=== PATIENT | female | born 1990 | race African-American/Black ===

== ENCOUNTER 2017-08-07 13:24 | Inpatient (IN) | payer OTHER ==
[~2017-08-07] VITALS: Ht 165.1 cm; Wt 66.5 kg
[~2017-08-07 13:24] MED LIST: ZOFR4TAB3 SL
[2017-08-07 13:29] VITALS: BP 131/85; PULSE 96; RESP 20; TEMP 97.9; O2SAT 98
[2017-08-07 15:03] LABS: AUTOMATED NEUTROPHIL # 2.6 TH/MM3 (1.8-7.7); BASOPHIL % 0.7 % (0.0-2.0); EOSINOPHIL % 0.6 % (0.0-4.0); HEMATOCRIT 43.8 % (35.0-46.0); HEMOGLOBIN 14.9 GM/DL (11.6-15.3); LYMPH % 27.2 % (9.0-44.0); LYMPHOCYTE # 1.1 TH/MM3 (1.0-4.8); MEAN CELL VOLUME 92.6 FL (80.0-100.0); MEAN CORPUSCULAR HEMOGLOBIN 31.6 PG (27.0-34.0); MEAN CORPUSCULAR HGB CONC 34.1 % (32.0-36.0); MEAN PLATELET VOLUME 8.6 FL (7.0-11.0); MONO % 6.9 % (0.0-8.0); MONOCYTE # 0.3 TH/MM3 (0-0.9); NEUT % 64.6 % (16.0-70.0); PLATELET COUNT 237 TH/MM3 (150-450); RED BLOOD COUNT 4.73 MIL/MM3 (4.00-5.30); RED CELL DISTRIBUTION WIDTH 12.6 % (11.6-17.2)
[2017-08-07 15:11] LABS: BACTERIA, URINE RARE /hpf; BILIRUBIN, URINE NEG (NEG); BLOOD, URINE TRACE (NEG); GLUCOSE,URINE NEG (NEG); KETONE, URINE NEG (NEG); NITRITE,URINE NEG (NEG); PH, URINE 5.5 (5.0-8.5); SQUAMOUS EPITHELIAL CELL URINE 2 /hpf (0-5); URINE COLOR LIGHT-YELLOW (YELLW/STRAW); URINE LEUKOCYTE ESTERASE NEG (NEG)
[2017-08-07 15:24] LABS: ALBUMIN 4.6 GM/DL (3.4-5.0); AST (GOT) 36 U/L (15-37); BICARBONATE 24.6 MEQ/L (21.0-32.0); BLOOD UREA NITROGEN 7 MG/DL (7-18); CALCIUM 8.7 MG/DL (8.5-10.1); CHLORIDE 106 MEQ/L (98-107); CREATININE 0.76 MG/DL (0.50-1.00); GLOMERULAR FILTRATION RATE 111 ML/MIN (>89); GLUCOSE,RANDOM 87 MG/DL (74-106); SODIUM (NA) 139 MEQ/L (136-145)
[2017-08-07 15:29] LABS: ALKALINE PHOSPHATASE 87 U/L (45-117); ALT (GPT) 39 U/L (10-53); TOTAL BILIRUBIN ADULT 0.2 MG/DL (0.2-1.0); TOTAL PROTEIN 9.4 GM/DL (6.4-8.2)
[2017-08-07 15:55] VITALS: BP 112/76; PULSE 90; RESP 18; O2SAT 98
--- NOTE | 2017-08-07 15:55 | PD ---
HPI Chief Complaint: Psychiatric Symptoms Time Seen by Provider: 15:53 Travel History International Travel<30 days: No Contact w/Intl Traveler<30days: No Traveled to known affect area: No History of Present Illness HPI 26-year-old Afro-[place]ian female presents to the emergency department voluntarily for psychiatric evaluation with suicidal ideation. She comes in with her mother and father. Patient is cooperative. Patient states that she wants to take poison to commit suicide. Patient states no significant drug use but does drink 1-2 beers nightly for sleep. Patient denies other medical problems other than chronic left knee pain. Patient has no known drug allergies. PFSH Past Medical History Diminished Hearing: No Respiratory: Yes (Bronchitis) Immunizations Current: Yes ?: Not LMP: 07/30/2017 : 0 Social History Alcohol Use: Yes ("MAYBE 2 BEERS A NIGHT") Tobacco Use: Yes (1 PPD) Substance Use: No Allergies-Medications (Allergen,Severity, Reaction): Coded Allergies: No Known Allergies (Verified , 06/14/16) Reported Meds & Prescriptions Reported Meds & Active Scripts Active Zofran Odt (Ondansetron Odt) 4 Mg Tab 4 Mg SL Q6HR PRN Review of Systems Except as stated in HPI: all other systems reviewed are Neg General / Constitutional: No: Fever Eyes: No: Visual changes HENT: No: Headaches Cardiovascular: No: Chest Pain or Discomfort Respiratory: No: Shortness of Breath Gastrointestinal: No: Abdominal Pain Genitourinary: No: Dysuria Musculoskeletal: No: Pain Skin: No Rash Neurologic: No: Weakness Psychiatric: Positive: Depression, Suicidal Ideations, No: Homicidal Ideation Endocrine: No: Polydipsia Hematologic/Lymphatic: No: Easy Bruising Physical Exam Narrative GENERAL: Patient appears in no obvious distress. She has somewhat poor eye contact. SKIN: Warm and dry. Normal color. Normal turgor. HEAD: Atraumatic. Normocephalic. EYES: Pupils equal and round. No scleral icterus. No injection or drainage. ENT: No nasal bleeding or discharge. Mucous membranes pink and moist. Pharynx is clear. Airway is patent. NECK: Trachea midline. Supple nontender CARDIOVASCULAR: Regular rate and rhythm. RESPIRATORY: No accessory muscle use. Clear to auscultation. Breath sounds equal bilaterally. GASTROINTESTINAL: Abdomen soft, non-tender, nondistended. Hepatic and splenic margins not palpable. MUSCULOSKELETAL: Extremities without clubbing, cyanosis, or edema. No obvious deformities. NEUROLOGICAL: Awake and alert. No obvious cranial nerve deficits. Motor grossly within normal limits. Five out of 5 muscle strength in the arms and legs. Normal speech. PSYCHIATRIC: Appropriate mood and affect; insight and judgment normal. Data Data Last Documented VS Vital Signs Date Time Temp Pulse Resp B/P (MAP) Pulse Ox O2 Delivery O2 Flow Rate FiO2 08/07/17 15:55 90 18 112/76 (88) 98 Room Air 08/07/17 13:29 97.9 Orders Orders Complete Blood Count With Diff (08/07/17 13:45) Comprehensive Metabolic Panel (08/07/17 13:45) Urinalysis - C+S If Indicated (08/07/17 13:45) Ed Urine Pregnancytest Poc (08/07/17 13:45) Psych Screen (08/07/17 13:45) Drug Screen, Random Urine (08/07/17 13:45) Alcohol (Ethanol) (08/07/17 13:45) Labs Laboratory Tests Test 08/07/17 14:42 White Blood Count 4.0 TH/MM3 Red Blood Count 4.73 MIL/MM3 Hemoglobin 14.9 GM/DL Hematocrit 43.8 % Mean Corpuscular Volume 92.6 FL Mean Corpuscular Hemoglobin 31.6 PG Mean Corpuscular Hemoglobin Concent 34.1 % Red Cell Distribution Width 12.6 % Platelet Count 237 TH/MM3 Mean Platelet Volume 8.6 FL Neutrophils (%) (Auto) 64.6 % Lymphocytes (%) (Auto) 27.2 % Monocytes (%) (Auto) 6.9 % Eosinophils (%) (Auto) 0.6 % Basophils (%) (Auto) 0.7 % Neutrophils # (Auto) 2.6 TH/MM3 Lymphocytes # (Auto) 1.1 TH/MM3 Monocytes # (Auto) 0.3 TH/MM3 Eosinophils # (Auto) 0.0 TH/MM3 Basophils # (Auto) 0.0 TH/MM3 CBC Comment DIFF FINAL Differential Comment Urine Color LIGHT-YELLOW Urine Turbidity CLEAR Urine pH 5.5 Urine Specific [place] 1.005 Urine Protein NEG mg/dL Urine Glucose (UA) NEG mg/dL Urine Ketones NEG mg/dL Urine Occult Blood TRACE Urine Nitrite NEG Urine Bilirubin NEG Urine Urobilinogen LESS THAN 2.0 MG/DL Urine Leukocyte Esterase NEG Urine RBC 1 /hpf Urine WBC 2 /hpf Urine Squamous Epithelial Cells 2 /hpf Urine Bacteria RARE /hpf Microscopic Urinalysis Comment CULT NOT INDICATED Blood Urea Nitrogen 7 MG/DL Creatinine 0.76 MG/DL Random Glucose 87 MG/DL Total Protein 9.4 GM/DL Albumin 4.6 GM/DL Calcium Level 8.7 MG/DL Alkaline Phosphatase 87 U/L Aspartate Amino Transf (AST/SGOT) 36 U/L Alanine Aminotransferase (ALT/SGPT) 39 U/L Total Bilirubin 0.2 MG/DL Sodium Level 139 MEQ/L Potassium Level 4.2 MEQ/L Chloride Level 106 MEQ/L Carbon Dioxide Level 24.6 MEQ/L Anion Gap 8 MEQ/L Estimat Glomerular Filtration Rate 111 ML/MIN Urine Opiates Screen NEG Urine Barbiturates Screen NEG Urine Amphetamines Screen NEG Urine Benzodiazepines Screen NEG Urine Cocaine Screen NEG Urine Cannabinoids Screen NEG Ethyl Alcohol Level 294 MG/DL MDM Medical Decision Making Medical Screen Exam Complete: Yes Emergency Medical Condition: Yes Medical Record Reviewed: Yes Differential Diagnosis Depression. Suicidal ideation. Need for psychiatric evaluation. Narrative Course Patient is currently voluntary but I explained to her that if she tried to leave I would probably Moreno act her based on my history and physical. Psychiatric labs are ordered per protocol. Including urine . Psychiatric screening ordered. Labs are unremarkable. Urine tox screen is negative. Serum EtOH is 294. Patient is medically cleared for psychiatric evaluation. Diagnosis Primary Impression: Suicidal ideation Condition: Stable Misael Munguia Aug 07, 2017 15:55
[2017-08-07 19:54] VITALS: BP 122/68; PULSE 101; RESP 17; O2SAT 98
[2017-08-08 02:06] VITALS: BP 106/59; PULSE 101; RESP 18; O2SAT 98
[2017-08-08 06:39] VITALS: BP 123/62; PULSE 101; RESP 18; O2SAT 97
[2017-08-08 10:25] VITALS: BP 114/63; PULSE 84; RESP 18
[2017-08-08] MEDS ORDERED: ACETAMINOPHEN 325 MG TAB PO PRN (13:15)
[2017-08-08] MEDS ORDERED: LORazepam 2 MG/ML VIAL IM PRN (13:15)
[2017-08-08] MEDS ORDERED: MAGNESIUM HYDROXIDE SUSP 30 ML CUP PO PRN (13:15)
[2017-08-08] MEDS ORDERED: ALUMINUM/MAGNESIUM/SIMETH 30 ML CUP PO PRN (13:15)
--- NOTE | 2017-08-08 13:24 | HHI.HP ---
Provisional Diagnosis Admission Date [place] I. Major depression Certification of Person's Competence To Provide Express and Informed Consent I have personally examined Althea Vargas , a person being served at [facility] on, Aug 08, 2017 13:14. Express and informed consent means consent voluntarily given in writing, by a competent person, after sufficient explanation and disclosure of the subject matter involved to enable the person to make a knowing and willful decision without any element of force, fraud, deceit, duress, or other form of constraint or coercion. This person is 18 years of age or older, is not now known to be incompetent to consent to treatment with a guardian advocate, and does not have a health care surrogate or proxy currently making medical treatment decisions. I have found this person to be one of the following: [X] Competent to provide express and informed consent, as defined above, for voluntary admission to this facility and is competent to provide express and informed consent for treatment. He/she has the consistent capacity to make well reasoned, willful, and knowing decisions concerning his or her medical or mental health treatment. The person fully and consistently understands the purpose of the admission for examination/placement and is fully capable of personally exercising all rights [place] Incompetent to provide express and informed consent to voluntary admission, and this is incompetent to provide express and informed consent to treatment. The person must be transferred to involuntary status and a petition for a guardian advocate filed with the Circuit Court. [] Refusing to provide express and informed consent to voluntary admission but is competent to provide express and informed consent for treatment. The person must be discharged or transferred to involuntary status. Form shall be completed within 24 hours of a person's arrival at the receiving facility and filed in the clinical record of each person: 1. Admitted on a voluntary basis 2. Permitted to provide express and informed consent to his/her own treatment 3. Allowed to transfer from involuntary to voluntary status 4. Prior to permitting a person to consent to his or her own treatment after having been previously found incompetent to consent to treatment. History of Present Illness Capacity: Has Capacity HPI 26-year-old female accompanied by her mother and father, presenting voluntarily for psychiatric examination. The patient describes a greater than 2 week history (several months) of depressive complaints. She currently has suicidal ideation with plan and her plan is to drink some kind of poison. She demonstrates a poverty of speech and was not forthcoming about stressors that might be contributing to her depression. She does admit to experiencing multiple symptoms, including depressed mood, anhedonia, diminished energy, feelings of hopelessness and helplessness, decreased self-esteem, social withdrawal, difficulty with concentration, initial and middle insomnia, as well as suicidality. She is anxious in general but cannot pinpoint a specific stressor. She admits to drinking 1-2 beers some nights in order to help her sleep. She denies any illicit drug use. Her toxicology screen is negative for drugs but her alcohol level is 294. She is unable to contract for safety. Her mother reportedly works at this hospital as a nursing attendant. Review of Systems Psychiatric: COMPLAINS OF: Anxiety, Depression, Suicidal Ideation Except as stated in HPI: all other systems reviewed are Neg Past Psych History Psychological trauma history Unknown. Patient not revealing. Violence risk - others (6 mos) Minimal to moderate. Violence risk - self (6 mos) High Substance Abuse History Drugs/Alcohol past 12 months Denied but this physician feels the patient is abusing alcohol as 1-2 beers would not give rise to an alcohol level of 294. Past Family Social History Coded Allergies: No Known Allergies (Verified , 06/14/16) Active Scripts Ondansetron Odt (Zofran Odt) 4 Mg Tab, 4 MG SL Q6HR Y for Nausea/Vomiting, #10 TAB 0 Refills Prov:Endy Carlin MD 06/14/16 Family Psych History Positive for mood and anxiety disorders. Social History Patient intermittently a student. He works intermittently as well. Has a supportive family. As stated above, mother works at this hospital. Patient denies drug and alcohol abuse but toxicology testing is positive for significant alcohol this evening. Patient's Strengths (min. 2) Verbal and has access to healthcare. Physical Exam GENERAL: SKIN: Warm and dry. HEAD: Normocephalic. EYES: No scleral icterus. No injection or drainage. NECK: Supple, trachea midline. No JVD or lymphadenopathy. CARDIOVASCULAR: Regular rate and rhythm without murmurs, gallops, or rubs. RESPIRATORY: Breath sounds equal bilaterally. No accessory muscle use. GASTROINTESTINAL: Abdomen soft, non-tender, nondistended. MUSCULOSKELETAL: No cyanosis, or edema. BACK: Nontender without obvious deformity. No CVA tenderness. Vital Signs Vital Signs Date Time Temp Pulse Resp B/P (MAP) Pulse Ox O2 Delivery O2 Flow Rate FiO2 08/08/17 10:25 84 18 114/63 (80) 08/08/17 06:39 97 Room Air 08/07/17 13:29 97.9 Lab Results Test 08/07/17 14:42 White Blood Count 4.0 TH/MM3 Red Blood Count 4.73 MIL/MM3 Hemoglobin 14.9 GM/DL Hematocrit 43.8 % Mean Corpuscular Volume 92.6 FL Mean Corpuscular Hemoglobin 31.6 PG Mean Corpuscular Hemoglobin Concent 34.1 % Red Cell Distribution Width 12.6 % Platelet Count 237 TH/MM3 Mean Platelet Volume 8.6 FL Neutrophils (%) (Auto) 64.6 % Lymphocytes (%) (Auto) 27.2 % Monocytes (%) (Auto) 6.9 % Eosinophils (%) (Auto) 0.6 % Basophils (%) (Auto) 0.7 % Neutrophils # (Auto) 2.6 TH/MM3 Lymphocytes # (Auto) 1.1 TH/MM3 Monocytes # (Auto) 0.3 TH/MM3 Eosinophils # (Auto) 0.0 TH/MM3 Basophils # (Auto) 0.0 TH/MM3 CBC Comment DIFF FINAL Differential Comment Urine Color LIGHT-YELLOW Urine Turbidity CLEAR Urine pH 5.5 Urine Specific [place] 1.005 Urine Protein NEG mg/dL Urine Glucose (UA) NEG mg/dL Urine Ketones NEG mg/dL Urine Occult Blood TRACE Urine Nitrite NEG Urine Bilirubin NEG Urine Urobilinogen LESS THAN 2.0 MG/DL Urine Leukocyte Esterase NEG Urine RBC 1 /hpf Urine WBC 2 /hpf Urine Squamous Epithelial Cells 2 /hpf Urine Bacteria RARE /hpf Microscopic Urinalysis Comment CULT NOT INDICATED Blood Urea Nitrogen 7 MG/DL Creatinine 0.76 MG/DL Random Glucose 87 MG/DL Total Protein 9.4 GM/DL Albumin 4.6 GM/DL Calcium Level 8.7 MG/DL Alkaline Phosphatase 87 U/L Aspartate Amino Transf (AST/SGOT) 36 U/L Alanine Aminotransferase (ALT/SGPT) 39 U/L Total Bilirubin 0.2 MG/DL Sodium Level 139 MEQ/L Potassium Level 4.2 MEQ/L Chloride Level 106 MEQ/L Carbon Dioxide Level 24.6 MEQ/L Anion Gap 8 MEQ/L Estimat Glomerular Filtration Rate 111 ML/MIN Urine Opiates Screen NEG Urine Barbiturates Screen NEG Urine Amphetamines Screen NEG Urine Benzodiazepines Screen NEG Urine Cocaine Screen NEG Urine Cannabinoids Screen NEG Ethyl Alcohol Level 294 MG/DL Mental Status Examination Appearance: Appropriate Consciousness: Alert Orientation: x4 Motor Activity: Normal gait Speech: Unremarkable Language: Adequate Fund of Knowledge: Adequate Attention and Concentration: Adequate Memory: Unremarkable Mood: Sad, Anxious Affect: Sad, Anxious Thought Process & Associations: Intact Thought Content: Appropriate Hallucination Type: None Delusion Type: None Suicidal Ideation: Yes Suicidal Plan: Yes Suicidal Intention: Yes Homicidal Ideation: No Homicidal Plan: No Homicidal Intention: No Insight: Fair Judgment: Impulsive Assessment & Plan Problem List: (1) Severe major depression, single episode, without psychotic features ICD Codes: F32.2 - Major depressive disorder, single episode, severe without psychotic features Assessment & Plan Estimated LOS: days. 26-year-old female presents voluntarily with symptoms of depression and suicidal thinking with plan. As stated by the physician office assistant, if patient were not willing to be admitted voluntarily, this physician would initiate a Moreno act. Patient is considered to be at high risk for self-harm as a result of her age group, recent alcohol abuse, chronic depressive symptoms, and lethal plan for suicide. She is therefore being admitted for further evaluation and treatment. This physician has ordered a CBC and comprehensive metabolic panel to determine if any infectious process or metabolic process might be causing or contributing to her depression. This physician has also ordered hemoglobin A1c and a lipid panel as problems with blood sugar and cholesterol could either cause mood changes or be the result of psychotropic medicines which have yet to be started. This physician also ordered thyroid stimulating hormone level, vitamin B-12 level and vitamin D level as deficiencies in these areas might cause or contribute to the patient's depression. An EKG is being obtained to determine the patient's cardiac conduction status prior to initiating psychotropic medicines which might adversely effect the electrical system of her heart. This case was discussed with nurse Frye. Case management will also be involved to assist with information gathering and disposition planning. Juan Carlos Olivier MD Aug 08, 2017 13:24
[2017-08-08 16:00] VITALS: BP 123/80; PULSE 80; RESP 16; TEMP 98.4; O2SAT 96
[2017-08-08 18:16] VITALS: BP 123/80; PULSE 80; RESP 16; TEMP 98.4; O2SAT 96
[2017-08-09] MEDS: LORazepam 1 MG TAB PO PRN ×2 (00:35→23:48)
[2017-08-09 05:55] VITALS: BP 114/56; PULSE 74; RESP 16; TEMP 98.1; O2SAT 97
[2017-08-09 10:07] LABS: AUTOMATED NEUTROPHIL # 1.3 TH/MM3 (1.8-7.7); BASOPHIL % 0.8 % (0.0-2.0); EOSINOPHIL # 0.1 TH/MM3 (0-0.4); EOSINOPHIL % 2.2 % (0.0-4.0); HEMATOCRIT 42.2 % (35.0-46.0); HEMOGLOBIN 14.6 GM/DL (11.6-15.3); LYMPH % 31.6 % (9.0-44.0); LYMPHOCYTE # 0.8 TH/MM3 (1.0-4.8); MEAN CORPUSCULAR HEMOGLOBIN 31.9 PG (27.0-34.0); MEAN CORPUSCULAR HGB CONC 34.6 % (32.0-36.0); MEAN PLATELET VOLUME 8.9 FL (7.0-11.0); MONO % 16.3 % (0.0-8.0); MONOCYTE # 0.4 TH/MM3 (0-0.9); NEUT % 49.1 % (16.0-70.0); PLATELET COUNT 207 TH/MM3 (150-450); RED BLOOD COUNT 4.59 MIL/MM3 (4.00-5.30); RED CELL DISTRIBUTION WIDTH 12.5 % (11.6-17.2); WHITE BLOOD COUNT 2.7 TH/MM3 (4.0-11.0)
[2017-08-09 11:02] LABS: ALBUMIN 4.4 GM/DL (3.4-5.0); ALKALINE PHOSPHATASE 82 U/L (45-117); ALT (GPT) 31 U/L (10-53); AST (GOT) 28 U/L (15-37); BICARBONATE 27.5 MEQ/L (21.0-32.0); BLOOD UREA NITROGEN 11 MG/DL (7-18); CALCIUM 9.5 MG/DL (8.5-10.1); CHLORIDE 98 MEQ/L (98-107); CHOLESTEROL 154 MG/DL (120-200); CHOLESTEROL/ HDL RATIO 2.34 RATIO; CREATININE 0.92 MG/DL (0.50-1.00); GLOMERULAR FILTRATION RATE 89 ML/MIN (>89); GLUCOSE,RANDOM 96 MG/DL (74-106); HDL CHOLESTEROL 65.7 MG/DL (40.0-60.0); LDL CHOLESTEROL 63 MG/DL (0-99); SODIUM (NA) 135 MEQ/L (136-145); TOTAL BILIRUBIN ADULT 0.9 MG/DL (0.2-1.0); TOTAL PROTEIN 8.6 GM/DL (6.4-8.2); TRIGLYCERIDES 129 MG/DL (42-150)
--- NOTE | 2017-08-09 11:07 | HHI.PYPN ---
Subjective Remarks Patient was seen and case discussed with nursing. There is no evidence of alcohol withdrawal such as confusion nausea, vomiting, tremors or hallucinations. Blood pressures within normal limits. Patient is irritable and demanding to leave. She minimizes her suicidal statements attributing them to alcohol. She refuses medication Mental Status Examination Appearance: Appropriate Consciousness: Alert Orientation: x4 Motor Activity: Normal gait Speech: Unremarkable Language: Adequate Fund of Knowledge: Adequate Attention and Concentration: Adequate Memory: Unremarkable Mood: Angry, Sad, Oppositional Affect: Irritable, Anxious Thought Process & Associations: Intact Thought Content: Appropriate Hallucination Type: None Delusion Type: None Suicidal Ideation: No Suicidal Plan: No Suicidal Intention: No Homicidal Ideation: No Homicidal Plan: No Homicidal Intention: No Insight: Fair Judgment: Impulsive Results Labs Test 08/09/17 08:50 White Blood Count 2.7 TH/MM3 Red Blood Count 4.59 MIL/MM3 Hemoglobin 14.6 GM/DL Hematocrit 42.2 % Mean Corpuscular Volume 92.0 FL Mean Corpuscular Hemoglobin 31.9 PG Mean Corpuscular Hemoglobin Concent 34.6 % Red Cell Distribution Width 12.5 % Platelet Count 207 TH/MM3 Mean Platelet Volume 8.9 FL Neutrophils (%) (Auto) 49.1 % Lymphocytes (%) (Auto) 31.6 % Monocytes (%) (Auto) 16.3 % Eosinophils (%) (Auto) 2.2 % Basophils (%) (Auto) 0.8 % Neutrophils # (Auto) 1.3 TH/MM3 Lymphocytes # (Auto) 0.8 TH/MM3 Monocytes # (Auto) 0.4 TH/MM3 Eosinophils # (Auto) 0.1 TH/MM3 Basophils # (Auto) 0.0 TH/MM3 CBC Comment DIFF FINAL Differential Comment Blood Urea Nitrogen 11 MG/DL Creatinine 0.92 MG/DL Random Glucose 96 MG/DL Total Protein 8.6 GM/DL Albumin 4.4 GM/DL Calcium Level 9.5 MG/DL Alkaline Phosphatase 82 U/L Aspartate Amino Transf (AST/SGOT) 28 U/L Alanine Aminotransferase (ALT/SGPT) 31 U/L Total Bilirubin 0.9 MG/DL Sodium Level 135 MEQ/L Potassium Level 3.4 MEQ/L Chloride Level 98 MEQ/L Carbon Dioxide Level 27.5 MEQ/L Anion Gap 10 MEQ/L Estimat Glomerular Filtration Rate 89 ML/MIN Triglycerides Level 129 MG/DL Cholesterol Level 154 MG/DL LDL Cholesterol 63 MG/DL HDL Cholesterol 65.7 MG/DL Cholesterol/HDL Ratio 2.34 RATIO Vitamin B12 Level 685 PG/ML Thyroid Stimulating Hormone 3rd Gen 2.920 uIU/ML Vitals/IOs Vital Signs Date Time Temp Pulse Resp B/P (MAP) Pulse Ox O2 Delivery O2 Flow Rate FiO2 08/09/17 05:55 98.1 74 16 114/56 (75) 97 08/08/17 06:39 Room Air Assessment & Plan Problem List: (1) Severe major depression, single episode, without psychotic features ICD Codes: F32.2 - Major depressive disorder, single episode, severe without psychotic features Assessment & Plan Continue current treatment plan Justification for Cont. Inpt. Patient would decompensate in a less restrictive setting Matthew Pruitt DO Aug 09, 2017 11:07
[2017-08-09 12:09] LABS: HEMOGLOBIN A1C 5.5 % (4.3-6.0)
[2017-08-09 17:16] VITALS: BP 122/71; PULSE 70; RESP 18; TEMP 97.5; O2SAT 98
[2017-08-10 06:00] VITALS: BP 109/57; PULSE 68; RESP 16; TEMP 97.9; O2SAT 98
--- NOTE | 2017-08-10 11:56 | HHI.PYPN ---
Subjective Remarks Patient was seen and case discussed with nursing. Patient continues to state that she was simply impulsive and drunk she made her statement. Continues to refuse medication. At a productive visit from her family yesterday. Denies suicidal or homicidal ideation intent or plan Mental Status Examination Appearance: Appropriate Consciousness: Alert Orientation: x4 Motor Activity: Normal gait Speech: Unremarkable Language: Adequate Fund of Knowledge: Adequate Attention and Concentration: Adequate Memory: Unremarkable Mood: Angry, Sad, Oppositional Affect: Irritable, Anxious Thought Process & Associations: Intact Thought Content: Appropriate Hallucination Type: None Delusion Type: None Suicidal Ideation: No Suicidal Plan: No Suicidal Intention: No Homicidal Ideation: No Homicidal Plan: No Homicidal Intention: No Insight: Fair Judgment: Impulsive Results Vitals/IOs Vital Signs Date Time Temp Pulse Resp B/P (MAP) Pulse Ox O2 Delivery O2 Flow Rate FiO2 08/10/17 06:00 97.9 68 16 109/57 (74) 98 08/08/17 06:39 Room Air Assessment & Plan Problem List: (1) Severe major depression, single episode, without psychotic features ICD Codes: F32.2 - Major depressive disorder, single episode, severe without psychotic features Assessment & Plan Continue current treatment plan Justification for Cont. Inpt. Patient will decompensate in a less restrictive setting Matthew Pruitt DO Aug 10, 2017 11:55
--- NOTE | 2017-08-10 13:16 | EKG ---
Date Performed: 08/09/2017 Time Performed: 13:36:23 PTAGE: 26 years EKG: Sinus rhythm SEPTAL MYOCARDIAL INFARCTION , PROBABLY OLD ABNORMAL ECG NO PREVIOUS TRACING DOCTOR: Maninder Still Interpretating Date/Time 08/10/2017 13:15:33
[2017-08-10 18:22] VITALS: BP 113/67; PULSE 92; RESP 17; TEMP 97.4; O2SAT 99
[2017-08-10] MEDS: LORazepam 1 MG TAB PO PRN (23:52)
[2017-08-11 05:58] VITALS: BP 110/59; PULSE 66; RESP 18; TEMP 97.6; O2SAT 66
--- NOTE | 2017-08-11 11:43 | HHI.DS ---
Psychiatry Discharge Summary Inpatient Psychiatric care?: Yes Advance Directive: No Reason Not Provided: Due to Patient Condition Mental Health AdvanceDirective: No Health Care Proxy: No Admission Admission Date Aug 08, 2017 at 13:11 Admission Diagnosis: (1) Severe major depression, single episode, without psychotic features ICD Code: F32.2 - Major depressive disorder, single episode, severe without psychotic features Brief History 26-year-old female accompanied by her mother and father, presenting voluntarily for psychiatric examination. The patient describes a greater than 2 week history (several months) of depressive complaints. She currently has suicidal ideation with plan and her plan is to drink some kind of poison. She demonstrates a poverty of speech and was not forthcoming about stressors that might be contributing to her depression. She does admit to experiencing multiple symptoms, including depressed mood, anhedonia, diminished energy, feelings of hopelessness and helplessness, decreased self-esteem, social withdrawal, difficulty with concentration, initial and middle insomnia, as well as suicidality. She is anxious in general but cannot pinpoint a specific stressor. She admits to drinking 1-2 beers some nights in order to help her sleep. She denies any illicit drug use. Her toxicology screen is negative for drugs but her alcohol level is 294. She is unable to contract for safety. Her mother reportedly works at this hospital as a nursing education consultant. Tobacco Use In Past 30 Days: 5 or More Cigarettes/Day Alcohol Use: 4 or More Times Per Week Hospital Course Patient was admitted to a locked, inpatient psychiatric unit. Appropriate precautions were in place throughout patient's hospital stay. Patient was seen and examined on the unit by psychiatry and also visited by counselor. There has been no evidence of any suicidality or homicidality on the inpatient unit. The patient remained in generally good behavioral control. Counselor has obtain collateral information from the patient's mother with whom patient lives to the effect that mother's concern chiefly about patient's alcohol use issues. Mother was counseled by the counselor regarding the [place] act. On the day of discharge: Patient seen and examined with nurse. Chart reviewed. Case discussed with nursing staff who reports patient has been smiling and visible on the unit. Case discussed with counselor. On my examination today, the patient is requesting discharge from the inpatient psychiatric unit today. She denies any suicidal or homicidal ideation, intent or plan on direct questioning and contracts for safety. She is future oriented. I can elicit no depressive or hypomanic/manic symptoms in this patient at this time, except she does report chronically poor sleep. She denies any trauma history. She denies any audiovisual hallucinations. I can elicit no delusional material. There is no evidence of any impairment in reality construction. The patient maintains that her presenting suicidal ideation was because of "too much alcohol." Apparently she was upset about some issue of disloyalty in a former friend. Her plan going forward is simply to avoid this person. She denies any history of suicide attempts. She denies any family history of suicide. Her father has a history of alcohol use, possibly abuse of alcohol. She denies any access to guns or firearms. She lives with her mother. She has a dog whom she cares for. She is agreeable to outpatient follow-up. She is not interested in psychotropic medication management at this time. She has no physical complaints. Suicide and violence risk assessment on day of discharge both suggest lower imminent risk and the patient's level of function is adequate for outpatient care. Patient does not meet criteria for involuntary psychiatric hospitalization, and I have no basis to retain her on the unit any longer as she is requesting discharge today. Substance use does constitute a chronic risk factor, and I have recommended that she abstain from substances of abuse and pursue chemical dependency evaluation and treatment on an outpatient basis. I have counseled the patient regarding warning signs for need to return to the psychiatric emergency room as part of a general safety plan. Results Blood Pressure 110 / 59 Vital Signs Date Time Temp Pulse Resp B/P (MAP) Pulse Ox O2 Delivery O2 Flow Rate FiO2 08/11/17 05:58 97.6 66 18 110/59 (76) -6-6-In error. Correct SpO2 was 98% RA 08/08/17 06:39 Room Air Laboratory Tests Test 08/09/17 08:50 White Blood Count 2.7 TH/MM3 (4.0-11.0) Monocytes (%) (Auto) 16.3 % (0.0-8.0) Neutrophils # (Auto) 1.3 TH/MM3 (1.8-7.7) Lymphocytes # (Auto) 0.8 TH/MM3 (1.0-4.8) Total Protein 8.6 GM/DL (6.4-8.2) Sodium Level 135 MEQ/L (136-145) Potassium Level 3.4 MEQ/L (3.5-5.1) HDL Cholesterol 65.7 MG/DL (40.0-60.0) 25-Hydroxy Vitamin D Total 6.7 ng/ML (30-100) Laboratory Results Test 08/09/17 08:50 Cholesterol Level 154 MG/DL (120-200) HDL Cholesterol 65.7 MG/DL (40.0-60.0) Hemoglobin A1c 5.5 % (4.3-6.0) LDL Cholesterol 63 MG/DL (0-99) Triglycerides Level 129 MG/DL (42-150) Summary of Major Lab Results Patient's vitamin D level is low and I have ordered vitamin D supplementation on discharge. Summary of Procedures None done Imaging None done Pending results at discharge: No Medications # of Antipsychotic meds at D/C: 0 Approp Antipsych med options 1 - Minimum of three failed multiple trials of monotherapy. 2 - Documented plan to taper to monotherapy due to previous use of multiple meds OR cross-taper in progress at D/C. 3 - Documentation of augmentation of Clozapine. 4 - Justification other than those listed in allowable values 1-3, document here : Discharge Discharge Date: Aug 11, 2017 Discharge Diagnosis: (1) Adjustment disorder with mixed disturbance of emotions and conduct Diagnosis: Principal (resolved) ICD Code: F43.25 - Adjustment disorder with mixed disturbance of emotions and conduct (2) Alcohol abuse Diagnosis: Secondary (counseled to quit and seek chemical dependency evaluation and treatment) ICD Code: F10.10 - Alcohol abuse, uncomplicated Pt Condition on Discharge: Stable Discharge Disposition: Discharge Home Discharge Instructions Diet Instructions: As Tolerated, No Restrictions Activities you can perform: Weight Bearing as Claudia Scheduled Appointment: [facility] Appointment Date: Sep 11, 2017 Appointment Time: 8:30 a.m. New Orders: CBC WITH DIFF - 1 Week COMP MET PROF (CMP) - 1 Week VITAMIN D,25-HYDROXY - 2 Months New Medications: Cholecalciferol (Vitamin D3) 50,000 Unit Cap 16018 UNITS PO Q7D for Nutritional Supplement, #8 CAP 0 Refills Continued Medications: Ondansetron Odt (Zofran Odt) 4 Mg Tab 4 MG SL Q6HR PRN for Nausea/Vomiting, #10 TAB 0 Refills Discharge Time > 30 minutes Mental Status Examination Appearance: Appropriate, Well dressed/well groomed Consciousness: Alert Orientation: x4 (no evidence of delirium) Motor Activity: Other (no signs of withdrawal noted. No other motor abnormalities noted.) Speech: Unremarkable Language: Adequate Fund of Knowledge: Adequate Attention and Concentration: Adequate Memory: Unremarkable Mood: Appropriate Affect: Appropriate Thought Process & Associations: Intact, Logical, Goal directed, Linear Thought Content: Appropriate Hallucination Type: None Delusion Type: None Suicidal Ideation: No Suicidal Plan: No Suicidal Intention: No Homicidal Ideation: No Homicidal Plan: No Homicidal Intention: No Insight: Fair Judgment: Adequate (fair) Discharge/Advance Care Plan Health Problems: (1) Severe major depression, single episode, without psychotic features Goals to promote your health * To prevent worsening of your condition and complications * To maintain your health at the optimal level Directions to meet your goals Take your medications as prescribed Follow your dietary instruction Follow activity as directed Keep your appointments as scheduled Take your immunizations and boosters as scheduled If your symptoms worsen call your PCP, if no PCP go to Urgent Care Center or Emergency Room For 10/02 questions related to your inpatient stay or results of tests pending at discharge, please contact Dr. Dagoberto Castle at Smoking is Dangerous to Your Health. Avoid second hand smoking Dagoberto Castle MD Aug 11, 2017 11:42
[2017-08-11] MEDS ORDERED: CHOL1CAP34 PO (11:45)
== END 2017-08-11 15:50 | disposition home or self-care (01) | DRG 885 ==
LOC: NEPD 13:24 → NEDA 08-08 13:11 → H260 08-08 16:09
PROVIDERS: ADMIT Psychiatry & Neurology Psychiatry; ATTEND Psychiatry & Neurology Psychiatry
DX: F32.2 Major depressive disorder, single episode, severe without psychotic features (principal); R45.851 Suicidal ideations; F43.25 Adjustment disorder with mixed disturbance of emotions and conduct; G89.29 Other chronic pain; M25.562 Pain in left knee; F51.05 Insomnia due to other mental disorder; F10.10 Alcohol abuse, uncomplicated; Y90.8 Blood alcohol level of 240 mg/100 ml or more; Z72.0 Tobacco use
CPT/HCPCS: 80053; 80061; 80307; 81001; 82306; 82607; 83036; 84443; 84703; 85025; 93005; 99285